=== PATIENT | female | born 1965 | race Caucasian/White ===

== ENCOUNTER 2017-12-15 13:10 | Outpatient (CLI) | payer OTHER | END 2017-12-15 13:11 | disposition home or self-care (01) | LOC: BICRAD 13:10 | PROVIDERS: ATTEND Family Medicine | DX: J20.9 Acute bronchitis, unspecified (principal) | CPT/HCPCS: 71046 ==

== ENCOUNTER 2018-06-02 14:17 | Outpatient (CLI) | payer OTHER | END 2018-06-02 14:18 | disposition home or self-care (01) | LOC: BICMAMMO 14:17 | PROVIDERS: ATTEND Family Medicine | DX: Z12.31 Encounter for screening mammogram for malignant neoplasm of breast (principal) | CPT/HCPCS: 77063; 77067 ==

== ENCOUNTER → 2018-06-19 | Outpatient (CLI) | payer OTHER ==
[~2018-06-19] MED LIST: Gadobenate Dimeglumine 529 MG/1 ML (20ML VIAL) ONE
== END ==
LOC: BICMRI 02:31
PROVIDERS: ATTEND Family Medicine
DX: G93.9 Disorder of brain, unspecified (principal)
CPT/HCPCS: 70553; A9579

== ENCOUNTER 2019-04-19 08:38 | Outpatient (CLI) | payer OTHER ==
--- NOTE | 2019-04-19 09:31 | MMO ---
Bilateral MAMMO Bilat Diag [facility]U. CLINICAL HISTORY: Patient is 54 years old and is seen for diagnostic exam. The patient has no family history of breast cancer. The patient has no personal history of cancer. The patient has a history of right Excisional Biopsy in 1986 - benign and right Excisional Biopsy in 1994 - benign. VIEWS: The views performed were: bilateral craniocaudal with tomosynthesis; bilateral mediolateral oblique with tomosynthesis; and bilateral mediolateral. FILMS COMPARED: The present examination has been compared to prior imaging studies performed at [facility] on 03/30/2016, 05/04/2017, 06/02/2018 and 04/19/2019. MAMMOGRAM FINDINGS: There are scattered fibroglandular densities. Finding 1: There are stable benign appearing calcifications seen in both breasts. There are no suspicious masses, suspicious calcifications, or new areas of architectural distortion. IMPRESSION: FINDING 1: STABLE CALCIFICATIONS IN BOTH BREASTS ARE BENIGN. FINDING 2: FINDING IN THE RIGHT BREAST IS BENIGN. ULTRASOUND THE PALPABLE FINDING. NEGATIVE A ROUTINE FOLLOW-UP MAMMOGRAM IN 1 YEAR IS RECOMMENDED. THE RESULTS OF THIS EXAM WERE SENT TO THE PATIENT. ACR BI-RADS Category 2 - Benign finding MAMMOGRAPHY NOTE: 1. A negative mammogram report should not delay a biopsy if a dominant of clinically suspicious mass is present. 2. Approximately 10% to 15% of breast cancers are not detected by mammography. 3. Adenosis and dense breasts may obscure an underlying neoplasm.
--- NOTE | 2019-04-19 11:24 | ULT ---
RIGHT BREAST ULTRASOUND: Date: 04/19/19 HISTORY: Palpable finding in the upper outer right breast. COMPARISON: Diagnostic mammogram dated 04/19/19. FINDINGS: No solid or cystic mass, or other significant ultrasound abnormality noted in the region of palpable concern. IMPRESSION: BI-RADS Category 2 - Benign findings. Annual follow-up mammography. If the patient develops any new focal palpable finding before the time of the next scheduled mammogra m, ultrasound examination should be considered. POS: OFF
== END 2019-04-19 08:39 | disposition home or self-care (01) ==
LOC: BICMAMMO 08:38
PROVIDERS: ATTEND Family Medicine
DX: N63.10 Unspecified lump in the right breast, unspecified quadrant (principal); R92.1 Mammographic calcification found on diagnostic imaging of breast
CPT/HCPCS: 77066; G0279

== ENCOUNTER 2020-05-22 09:24 | Outpatient (CLI) | payer BC ==
--- NOTE | 2020-05-22 10:55 | MMO ---
Bilateral MAMMO Bilat Diag [facility]DI+STU. CLINICAL HISTORY: Patient is 55 years old and is seen for diagnostic exam. The patient has no family history of breast cancer. The patient has no personal history of cancer. The patient has a history of right Excisional Biopsy in 1986 - benign and right Excisional Biopsy in 1994 - benign. VIEWS: The views performed were: bilateral craniocaudal with tomosynthesis; bilateral mediolateral oblique with tomosynthesis; and bilateral mediolateral with tomosynthesis. FILMS COMPARED: The present examination has been compared to prior imaging studies performed at [facility] on 06/02/2018, 04/19/2019 and 05/22/2020. This study has been interpreted with the assistance of computer-aided detection. MAMMOGRAM FINDINGS: There are scattered fibroglandular densities. Finding 1: There are stable benign appearing calcifications seen in both breasts. Finding 2: No mammographic or ultrasound finding to account for the palpable finding. There are no suspicious masses, suspicious calcifications, or new areas of architectural distortion. IMPRESSION: THERE IS NO MAMMOGRAPHIC EVIDENCE OF MALIGNANCY. A ROUTINE FOLLOW-UP MAMMOGRAM IN 1 YEAR IS RECOMMENDED. THE RESULTS OF THIS EXAM WERE SENT TO THE PATIENT. ACR BI-RADS Category 2 - Benign finding MAMMOGRAPHY NOTE: 1. A negative mammogram report should not delay a biopsy if a dominant of clinically suspicious mass is present. 2. Approximately 10% to 15% of breast cancers are not detected by mammography. 3. Adenosis and dense breasts may obscure an underlying neoplasm. Reported by: BELKYS FERNANDEZ MD Electonically Signed: [id number]
--- NOTE | 2020-05-22 13:00 | ULT ---
RIGHT BREAST ULTRASOUND LIMITED: Date: 05/22/2020 HISTORY: Patient presents with a palpable finding in the upper outer right breast at approximately 10 o'clock position 8.0 cm from the nipple. FINDINGS: There is a very small, normal appearing lymph node measuring 0.4 x 0.7 x 0.6 cm in size, in roughly t his region. I am not certain whether the patient could possibly be feeling this lymph node. Apparentl y, she had a palpable finding in a similar location during last year's examination. IMPRESSION: No evidence for solid or cystic mass to account for a palpable finding in the right breast. There was no associated mammographic finding. Small incidental lymph node in the general region of the upper o uter right breast. BI-RADS Category 2 - Benign findings. Continue annual follow-up mammograms.
== END 2020-05-22 09:25 | disposition home or self-care (01) ==
LOC: BICMAMMO 09:24
PROVIDERS: ATTEND Family Medicine
DX: N63.10 Unspecified lump in the right breast, unspecified quadrant (principal)
CPT/HCPCS: 36415; 77066; 80053; 80061; G0279

== ENCOUNTER 2020-10-22 09:02 | Outpatient (CLI) | payer BC ==
--- NOTE | 2020-10-22 10:58 | RAD ---
RIGHT FOOT 3 VIEWS: Date; 10/22/2020 HISTORY: Pain in fifth metatarsal region. No injury. FINDINGS: Minimal arthritic change of the first metatarsophalangeal joints are seen. No signs of fracture, disl ocation, or other significant findings. IMPRESSION: No acute changes. POS: ESTEFANI
== END 2020-10-22 09:03 | disposition home or self-care (01) ==
LOC: BICRAD 09:02
PROVIDERS: ATTEND Family Medicine
DX: M19.90 Unspecified osteoarthritis, unspecified site (principal)

== ENCOUNTER 2021-04-29 10:05 | Outpatient (CLI) | payer BC | END 2021-04-29 10:06 | disposition home or self-care (01) | LOC: BICRAD 10:05 | PROVIDERS: ATTEND Family Medicine | DX: R06.02 Shortness of breath (principal) | CPT/HCPCS: 71046 ==

== ENCOUNTER 2021-06-19 07:02 | Outpatient (CLI) | payer BC | END 2021-06-19 07:03 | disposition home or self-care (01) | LOC: BICULT 07:02 | PROVIDERS: ATTEND Family Medicine | DX: R10.84 Generalized abdominal pain (principal); K76.0 Fatty (change of) liver, not elsewhere classified | CPT/HCPCS: 93975 ==

== ENCOUNTER 2021-12-01 15:08 | Outpatient (CLI) | payer BC | END 2021-12-01 15:09 | disposition home or self-care (01) | LOC: BICMAMMO 15:08 | PROVIDERS: ATTEND Family Medicine | DX: Z12.31 Encounter for screening mammogram for malignant neoplasm of breast (principal); Z91.89 Other specified personal risk factors, not elsewhere classified | CPT/HCPCS: 77063; 77067 ==

== ENCOUNTER 2022-03-15 09:24 | Outpatient (CLI) | payer BC | END 2022-03-15 09:25 | disposition home or self-care (01) | LOC: BICMAMMO 09:24 | PROVIDERS: ATTEND Internal Medicine Rheumatology | DX: Z13.820 Encounter for screening for osteoporosis (principal); M85.89 Other specified disorders of bone density and structure, multiple sites | CPT/HCPCS: 77080 ==

== ENCOUNTER 2022-07-29 10:12 | Outpatient (CLI) | payer BC | END 2022-07-29 10:13 | disposition home or self-care (01) | LOC: BICRAD 10:12 | PROVIDERS: ATTEND Family Medicine | DX: J20.9 Acute bronchitis, unspecified (principal); J98.4 Other disorders of lung; R91.8 Other nonspecific abnormal finding of lung field | CPT/HCPCS: 71046 ==

== ENCOUNTER 2023-01-04 13:48 | Outpatient (CLI) | payer BC | END 2023-01-04 13:49 | disposition home or self-care (01) | LOC: BICMAMMO 13:48 | PROVIDERS: ATTEND Family Medicine | DX: Z12.31 Encounter for screening mammogram for malignant neoplasm of breast (principal); R92.1 Mammographic calcification found on diagnostic imaging of breast; Z91.89 Other specified personal risk factors, not elsewhere classified | CPT/HCPCS: 77063; 77067 ==

== ENCOUNTER 2024-01-09 09:38 | Outpatient (CLI) | payer BC | END 2024-01-09 09:39 | disposition home or self-care (01) | LOC: BICMAMMO 09:38 | PROVIDERS: ATTEND Family Medicine | DX: N63.15 Unspecified lump in the right breast, overlapping quadrants (principal) | CPT/HCPCS: 77066; G0279 ==

== ENCOUNTER 2024-09-28 10:01 | Outpatient (CLI) | payer BC | END 2024-09-28 10:02 | disposition home or self-care (01) | LOC: BICMAMMO 10:01 | PROVIDERS: ATTEND Family Medicine | DX: N64.4 Mastodynia (principal) | CPT/HCPCS: 77066; G0279 ==